=== PATIENT | female | born 1980 | race Caucasian/White ===

== ENCOUNTER 2023-03-26 16:35 | Emergency (ER) | payer BC, SELFPAY ==
[2023-03-26 16:37] VITALS: BP 122/89; PULSE 117; RESP 18; TEMP 36.9; O2SAT 96; BMI 38.7
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
[2023-03-26 17:00] VITALS: BP 127/85; PULSE 109; RESP 20; O2SAT 98
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
--- NOTE | 2023-03-26 17:29 | PC.NURSE ---
pt refused toradol and only wants oral motrin. ER made aware
[2023-03-26 17:45] VITALS: BP 136/95; PULSE 108; RESP 20; O2SAT 98
[2023-03-26 17:49] VITALS: BP 145/88; PULSE 111
--- NOTE | 2023-03-26 17:56 | ECG_ITS ---
APPROVED REPORT Exam: Resting ECG HR:99 bpm ECG Measurements Heart Rate 99 AXES LA 151 P 55 QRSd 94 QRS 55 QT 338 T 35 QTc 394 Conclusion SINUS RHYTHM POSSIBLE LEFT ATRIAL ENLARGEMENT [-0.1mV P-WAVE IN V1/V2] LOW QRS VOLTAGE IN PRECORDIAL LEADS [QRS DEFLECTION < 1.0 mV IN CHEST LEADS] BORDERLINE ECG UNCONFIRMED REPORT Electronically signed by : Roly Keane MD 03/27/2023 21:01:26
[2023-03-26 17:57] LABS: Basophils # 0.1 K/mm3 (0-0.2); Basophils % 0.5 % (0.1-2.0); Eosinophils # 0.1 K/mm3 (0.0-0.4); Eosinophils % 1.4 % (0.1-12.0); Hematocrit 45.8 % (37.0-47.0); Hemoglobin 15.7 g/dL (12.2-16.2); Lymphocytes # 1.5 K/mm3 (0.7-4.5); Mean Corpuscular HGB Conc 34.4 g/dL (31.8-35.4); Mean Corpuscular Hemoglobin 29.2 pg (27.0-31.2); Mean Corpuscular Volume 84.9 fl (81-99); Mean Platelet Volume 7.3 fl (7.4-10.4); Monocytes # 0.5 K/mm3 (0.1-1.0); Monocytes % 5.2 % (1.7-9.3); Neutrophils # 6.7 K/mm3 (1.8-7.8); Platelet Count 329 K/mm3 (142-424); Red Blood Count 5.39 M/mm3 (4.20-5.40); Red Cell Distribution Width 13.4 % (11.5-17.5); White Blood Count 8.8 K/mm3 (4.8-10.8)
[2023-03-26 18:10] LABS: HCG Qualitative, Serum Negative (Negative)
[2023-03-26 18:17] LABS: Anion Gap 14.9 mEq/L (5-15); Blood Urea Nitrogen 15 mg/dl (7-17); Calcium 9.5 mg/dl (8.4-10.2); Carbon Dioxide 25 mmol/L (22.0-30.0); Chloride 105 mmol/L (98-107); Creatinine Clearance Estimated 157 mL/min (50-200); Estimated Glomerular Filt Rate 79 ml/min (>60); GFR (African American) 95 ML/MIN (>60); Glucose 75 mg/dl (74-100); Potassium 3.9 mmoL/L (3.5-5.1); Sodium 141 mmol/L (136-145)
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
--- NOTE | 2023-03-26 18:22 | PC.NURSE ---
RADIOLOGY AWARE OF NEW ORDER
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
--- NOTE | 2023-03-26 19:27 | PC.NURSE ---
SUGAR TONG SPLINT APPLIED
[2023-03-26 19:40] VITALS: BP 136/88; PULSE 104; RESP 17; TEMP 36.9; O2SAT 98
== END 2023-03-26 19:48 | disposition home or self-care (01) ==
PROVIDERS: Emergency Provider Emergency Medicine; PCP Family Medicine
DX: S52.571A Other intraarticular fracture of lower end of right radius, initial encounter for closed fracture (principal); V49.40XA Driver injured in collision with unspecified motor vehicles in traffic accident, initial encounter
CPT/HCPCS: 73080; 73090; 73110; 73200; 80048; 84703; 85025; 93005; 96374; 99285

== ENCOUNTER 2023-03-28 13:08 | Emergency (ER) | payer OTHER, BC, SELFPAY ==
[2023-03-28 13:09] VITALS: BP 139/87; PULSE 105; RESP 20; TEMP 36.8; O2SAT 97; BMI 40.0
[2023-03-28 13:10] VITALS: BP 139/87; PULSE 108; O2SAT 95
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
[2023-03-28 13:20] VITALS: BP 125/72; RESP 97; O2SAT 96
[2023-03-28 13:21] VITALS: BP 120/77; PULSE 89; O2SAT 96
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
[2023-03-28 14:09] LABS: Basophils # 0.1 K/mm3 (0-0.2); Basophils % 0.7 % (0.1-2.0); Eosinophils # 0.2 K/mm3 (0.0-0.4); Eosinophils % 1.7 % (0.1-12.0); Hemoglobin 14.9 g/dL (12.2-16.2); Lymphocytes # 1.8 K/mm3 (0.7-4.5); Lymphocytes % 20.7 % (10-50); Mean Corpuscular HGB Conc 33.2 g/dL (31.8-35.4); Mean Corpuscular Hemoglobin 28.3 pg (27.0-31.2); Mean Corpuscular Volume 85.4 fl (81-99); Mean Platelet Volume 7.3 fl (7.4-10.4); Monocytes # 0.4 K/mm3 (0.1-1.0); Monocytes % 4.7 % (1.7-9.3); Neutrophils # 6.2 K/mm3 (1.8-7.8); Neutrophils % 72.2 % (37.0-80.0); Platelet Count 349 K/mm3 (142-424); Red Blood Count 5.27 M/mm3 (4.20-5.40); Red Cell Distribution Width 13.2 % (11.5-17.5); White Blood Count 8.6 K/mm3 (4.8-10.8)
[2023-03-28 14:31] LABS: Chloride 108 mmol/L (98-107)
[2023-03-28 14:32] LABS: Potassium 4.1 mmoL/L (3.5-5.1); Sodium 138 mmol/L (136-145)
[2023-03-28 14:33] LABS: HCG Qualitative, Serum Negative (Negative)
[2023-03-28 14:34] LABS: Alanine Aminotransferase 24 U/L (12-78); Albumin Level 4.1 g/dl (3.5-5.0); Albumin/Globulin Ratio 1.1 (1.1-1.8); Alkaline Phosphatase 76 U/L (38-126); Anion Gap 15.1 mEq/L (5-15); Aspartate Amino Transferase 28 U/L (14-36); Bilirubin,Total 0.6 mg/dl (0.2-1.3); Blood Urea Nitrogen 10 mg/dl (7-17); Carbon Dioxide 19 mmol/L (22.0-30.0); Creatinine Clearance Estimated 217 mL/min (50-200); Estimated Glomerular Filt Rate 110 ml/min (>60); GFR (African American) 133 ML/MIN (>60); Globulin 3.6 g/dL (1.3-3.2); Total Protein,Serum 7.7 g/dl (6.3-8.2)
[2023-03-28 14:35] LABS: Calcium 9.3 mg/dl (8.4-10.2); Glucose 95 mg/dl (74-100)
--- NOTE | 2023-03-28 14:44 | PC.NURSE ---
PT to CT
[2023-03-28 15:23] VITALS: BP 116/75; PULSE 78; RESP 18; O2SAT 100
--- NOTE | 2023-03-28 15:31 | PC.NURSE ---
Rounded on patient; updated on plan of care
[2023-03-28 17:13] VITALS: BP 124/88; PULSE 87; RESP 18; TEMP 36.8; O2SAT 99
== END 2023-03-28 16:37 | disposition home or self-care (01) ==
PROVIDERS: Emergency Provider Emergency Medicine; PCP Family Medicine
DX: S06.0X0A Concussion without loss of consciousness, initial encounter (principal); S13.4XXA Sprain of ligaments of cervical spine, initial encounter; R07.89 Other chest pain; R10.2 Pelvic and perineal pain; V43.52XA Car driver injured in collision with other type car in traffic accident, initial encounter
CPT/HCPCS: 70450; 70496; 70498; 71275; 72125; 72128; 72131; 72192; 74174; 80053; 84703; 85025; 96360; 99285; Q9967

== ENCOUNTER → 2023-05-12 08:18 | Outpatient (CLI) | payer BC, SELFPAY ==
[2023-05-12 10:19] LABS: Free Thyroxine Index 3.3 ug/dL (5.93-13.13); T4 (Thyroxine) 9.9 ug/dl (5.53-11.0); Triiodothryronine (T3) Uptake 33 % (23.5-40.5)
[2023-05-12 10:32] LABS: Thyroid Stimulating Hormone 1.57 uIU/mL (0.465-4.68)
[2023-05-12 11:12] LABS: Vitamin B12 371 pg/mL (239-931)
[2023-05-12 11:14] LABS: Folate 7.13 ng/mL
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
== END ==
PROVIDERS: PCP Emergency Medicine; Visit Provider Nurse Practitioner Family
DX: G44.309 Post-traumatic headache, unspecified, not intractable (principal); H53.9 Unspecified visual disturbance; M54.2 Cervicalgia; R53.83 Other fatigue; E66.9 Obesity, unspecified; Z68.42 Body mass index [BMI] 45.0-49.9, adult
CPT/HCPCS: 36415; 70551; 82607; 82746; 84436; 84443; 84479

== ENCOUNTER 2023-05-25 08:00 | Outpatient (RCR) | payer BC, SELFPAY ==
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
== END 2023-05-25 08:05 | disposition home or self-care (01) ==
LOC: PT 08:00
PROVIDERS: PCP Emergency Medicine; Visit Provider Nurse Practitioner Family
DX: M54.2 Cervicalgia (principal); G44.309 Post-traumatic headache, unspecified, not intractable; S13.4XXA Sprain of ligaments of cervical spine, initial encounter; V89.2XXA Person injured in unspecified motor-vehicle accident, traffic, initial encounter
CPT/HCPCS: 20560; 97014; 97110; 97163; 97535; G0283

== ENCOUNTER → 2023-06-01 13:44 | Outpatient (CLI) | payer BC, SELFPAY | LOC: SL 13:45 | PROVIDERS: PCP Family Medicine; Visit Provider Nurse Practitioner Family | DX: G44.309 Post-traumatic headache, unspecified, not intractable (principal); R53.83 Other fatigue; E66.9 Obesity, unspecified; Z68.41 Body mass index [BMI] 40.0-44.9, adult | CPT/HCPCS: 94762 ==